=== PATIENT | female | born 1965 | race American Indian/Alaskan Native ===

== ENCOUNTER 2016-07-07 09:36 | Emergency (ER) | payer SELFPAY ==
[2016-07-07 09:44] VITALS: BP 148/102
--- NOTE | 2016-07-07 14:47 | Emergency Department Report ---
ED ENT HPI - General Chief complaint: Pain General Stated complaint: ABSCESS JAW SWOLLEN Time Seen by Provider: 07/07/16 13:45 Source: patient Mode of arrival: Ambulatory Limitations: No Limitations - History of Present Illness Initial comments: Patient presents with tooth pain for 2 weeks and left facial swelling. She was here approximately a month ago and Bactrim and hydrocodone. She admits that she did not follow-up with any of her referrals at last visit. She states that the facial swelling and the pain got better and then started back 2 weeks ago. MD complaint: tooth pain -: Gradual Location: tooth # (11, 12) Severity: severe Severity scale (0 -10): 10 Quality: aching, dull Consistency: constant Context- Dental: history of dental caries, poor dental care Associated Symptoms: toothache - Related Data Previous Rx's Medication Instructions Recorded Last Taken Type HYDROcodone/APAP 5-325 [[place] 1 each PO Q6HR PRN #16 tablet 06/04/16 Unknown Rx 5/325] Sulfamethoxazole/Trimethoprim 1 each PO BID #20 tablet 06/04/16 Unknown Rx [Bactrim DS TAB] Sulfamethoxazole/Trimethoprim 1 each PO BID #20 tablet 07/07/16 Unknown Rx [Bactrim DS TAB] traMADol [Ultram 50 MG tab] 50 mg PO BID PRN #14 tablet 07/07/16 Unknown Rx Allergies Allergy/AdvReac Type Severity Reaction Status Date / Time No Known Allergies Allergy Unverified 06/04/16 07:21 ED Dental HPI - General Chief complaint: Pain General Stated complaint: ABSCESS JAW SWOLLEN Time Seen by Provider: 07/07/16 13:45 Source: patient Mode of arrival: Ambulatory Limitations: No Limitations - Related Data Previous Rx's Medication Instructions Recorded Last Taken Type HYDROcodone/APAP 5-325 [[place] 1 each PO Q6HR PRN #16 tablet 06/04/16 Unknown Rx 5/325] Sulfamethoxazole/Trimethoprim 1 each PO BID #20 tablet 06/04/16 Unknown Rx [Bactrim DS TAB] Sulfamethoxazole/Trimethoprim 1 each PO BID #20 tablet 07/07/16 Unknown Rx [Bactrim DS TAB] traMADol [Ultram 50 MG tab] 50 mg PO BID PRN #14 tablet 07/07/16 Unknown Rx Allergies Allergy/AdvReac Type Severity Reaction Status Date / Time No Known Allergies Allergy Unverified 06/04/16 07:21 ED Review of Systems ROS: Stated complaint: ABSCESS JAW SWOLLEN Other details as noted in HPI Constitutional: denies: chills, fever ENT: as per HPI, dental pain Respiratory: denies: cough, shortness of breath, wheezing Cardiovascular: denies: chest pain, palpitations Gastrointestinal: denies: abdominal pain, nausea, diarrhea Musculoskeletal: denies: back pain, joint swelling, arthralgia Skin: denies: rash, lesions Neurological: denies: headache, weakness, paresthesias ED Past Medical Hx - Surgical History Additional Surgical History: x 4 - Social History Smoking Status: Current Every Day Smoker Substance Use Type: None - Medications Home Medications: Home Medications Medication Instructions Recorded Confirmed Last Taken Type HYDROcodone/APAP 5-325 [[place] 1 each PO Q6HR PRN #16 tablet 06/04/16 Unknown Rx 5/325] Sulfamethoxazole/Trimethoprim 1 each PO BID #20 tablet 06/04/16 Unknown Rx [Bactrim DS TAB] Sulfamethoxazole/Trimethoprim 1 each PO BID #20 tablet 07/07/16 Unknown Rx [Bactrim DS TAB] traMADol [Ultram 50 MG tab] 50 mg PO BID PRN #14 tablet 07/07/16 Unknown Rx ED Physical Exam - General Limitations: No Limitations General appearance: alert, in no apparent distress - Head Head exam: Present: atraumatic, normocephalic - Eye Eye exam: Present: normal appearance - ENT ENT exam: Present: mucous membranes moist, TM's normal bilaterally - Expanded ENT Exam Expanded Teeth exam: Present: dental caries, dental tenderness # (11, 12), other ( several missing teeth, facial swelling on left) - Neck Neck exam: Present: normal inspection, full ROM - Respiratory Respiratory exam: Present: normal lung sounds bilaterally. Absent: respiratory distress - Cardiovascular Cardiovascular Exam: Present: regular rate, normal rhythm. Absent: systolic murmur, diastolic murmur, rubs, gallop - Neurological Exam Neurological exam: Present: alert, oriented X3 - Psychiatric Psychiatric exam: Present: normal affect, normal mood - Skin Skin exam: Present: warm, dry, intact, normal color. Absent: rash ED Course Vital Signs 07/07/16 09:41 Temperature 98.9 F Pulse Rate 69 Respiratory 20 Rate Blood Pressure 148/102 O2 Sat by Pulse 100 Oximetry ED Medical Decision Making - Medical Decision Making Patient presents with tooth abscess and facial swelling. I will give her Bactrim twice a day 10 days, I will also give her tramadol for her pain. I will again refer her to Dr. Keny Lynch and [place] as Dr. Aaron did 1 month ago. - Differential Diagnosis tooth abscess, tooth decay, facial abscess Critical Care Time: No Critical care attestation.: If time is entered above; I have spent that time in minutes in the direct care of this critically ill patient, excluding procedure time. ED Disposition Clinical Impression: Abscessed tooth, Tooth decay Disposition: DISCHARGED TO HOME OR SELFCARE Is pt being admited?: No Does the pt Need Aspirin: No Condition: Stable Instructions: Dental Abscess (ED), Dental Caries (ED) Additional Instructions: It is very important that she follow up with an ENT, a dentist and facial plastic as advised. Prescriptions: Sulfamethoxazole/Trimethoprim [Bactrim DS TAB] 1 each PO BID #20 tablet traMADol [Ultram 50 MG tab] 50 mg PO BID PRN #14 tablet PRN Reason: Pain Referrals: KATHRIN LOPEZ MD [Staff Physician] - 3-5 Days DILAN NYE MD [Staff Physician] - 3-5 Days PRIMARY CARE, [Primary Care Provider] - 3-5 Days [facility] [Outside] - 3-5 Days [facility] [Outside] - 3-5 Days Time of Disposition: 14:58
== END 2016-07-07 15:04 | disposition home or self-care (01) ==
LOC: ED 09:36
DX: K04.7 Periapical abscess without sinus (principal); F17.200 Nicotine dependence, unspecified, uncomplicated
CPT/HCPCS: 99282

== ENCOUNTER 2016-08-21 10:31 | Emergency (ER) | payer SELFPAY ==
--- NOTE | 2016-08-21 14:56 | Emergency Department Report ---
ED Fall HPI - General Chief Complaint: Fall Stated Complaint: FALL/BACK PAIN /RT KNEE PAIN Time Seen by Provider: 08/21/16 13:46 Source: patient, family Mode of arrival: Ambulatory - History of Present Illness Initial Comments: Patient here reporting fall last night at work. She is complaining the lower back pain and right knee pain after she says she slipped and fell. Denies any head injury or loss of consciousness. Denies any loss of bowel or bladder control. She said the pain is worse when she tries to walk. Denies any nausea vomiting. Denies any numbness or tingling to extremities. She says she took [id number] pain medication but it didn't relieve her pain. Describes the pain is achy and 10 out of 10. Denies any urinary burning frequency or urgency. MD Complaint: fall -: Last night Fall From: standing When Fall Occurred: other (last night) Fall Witnessed: yes, by bystander Place Fall Occurred: home Loss of Consciousness: none Prolonged Down Time?: no Symptoms Prior to Fall: none Location: back Location - Extremities: Left: Knee (right knee pain and swelling) Severity: severe Severity scale (0 -10): 10 Quality: aching Context: tripped/slipped Associated Symptoms: denies: headache, neck pain, numbness, weakness, chest paint, shortness of breath, abdominal pain, hematuria, unable to walk, lightheaded, vertigo, confusion - Related Data Previous Rx's Medication Instructions Recorded Last Taken Type HYDROcodone/APAP 5-325 [[place] 1 each PO Q6HR PRN #16 tablet 06/04/16 Unknown Rx 5/325] Sulfamethoxazole/Trimethoprim 1 each PO BID #20 tablet 06/04/16 Unknown Rx [Bactrim DS TAB] Sulfamethoxazole/Trimethoprim 1 each PO BID #20 tablet 07/07/16 Unknown Rx [Bactrim DS TAB] traMADol [Ultram 50 MG tab] 50 mg PO BID PRN #20 tablet 08/21/16 Unknown Rx Allergies Allergy/AdvReac Type Severity Reaction Status Date / Time No Known Allergies Allergy Unverified 06/04/16 07:21 ED Review of Systems ROS: Stated complaint: FALL/BACK PAIN /RT KNEE PAIN Other details as noted in HPI Comment: All other systems reviewed and negative Constitutional: denies: chills, fever Respiratory: no symptoms reported Cardiovascular: denies: chest pain, palpitations, edema, syncope Gastrointestinal: denies: abdominal pain, nausea, vomiting, diarrhea Genitourinary: denies: urgency, dysuria, frequency, hematuria, discharge Skin: denies: rash Neurological: abnormal gait (due to right knee pain). denies: headache, numbness, paresthesias, confusion, vertigo ED Past Medical Hx - Past Medical History Previous Medical History?: No - Surgical History Past Surgical History?: Yes Additional Surgical History: x 4 - Family History Family history: hypertension - Social History Smoking Status: Current Every Day Smoker Substance Use Type: None - Medications Home Medications: Home Medications Medication Instructions Recorded Confirmed Last Taken Type HYDROcodone/APAP 5-325 [[place] 1 each PO Q6HR PRN #16 tablet 06/04/16 Unknown Rx 5/325] Sulfamethoxazole/Trimethoprim 1 each PO BID #20 tablet 06/04/16 Unknown Rx [Bactrim DS TAB] Sulfamethoxazole/Trimethoprim 1 each PO BID #20 tablet 07/07/16 Unknown Rx [Bactrim DS TAB] traMADol [Ultram 50 MG tab] 50 mg PO BID PRN #20 tablet 08/21/16 Unknown Rx ED Physical Exam - General Limitations: No Limitations General appearance: alert, in no apparent distress - Head Head exam: Present: atraumatic, normocephalic, normal inspection - Expanded Head Exam Expanded Head exam: Absent: laceration, abrasion, contusion, hematoma, racoon eyes, cooper's sign, general tenderness, tenderness of temporal artery, CSF rhinorrhea , CSF otorrhea - Eye Eye exam: Present: normal appearance, PERRL, EOMI. Absent: periorbital swelling , periorbital tenderness Pupils: Present: normal accommodation - ENT ENT exam: Present: normal exam, normal orophraynx, mucous membranes moist, TM's normal bilaterally, normal external ear exam - Neck Neck exam: Present: normal inspection, full ROM. Absent: tenderness, meningismus, lymphadenopathy - Expanded Neck Exam Expanded Neck exam: Absent: tenderness, midline deformity, anterior neck swelling, tracheal deviation - Respiratory Respiratory exam: Present: normal lung sounds bilaterally. Absent: respiratory distress, chest wall tenderness - Cardiovascular Cardiovascular Exam: Present: regular rate, normal rhythm, normal heart sounds - GI/Abdominal GI/Abdominal exam: Present: soft, normal bowel sounds. Absent: distended, tenderness, guarding, rebound, rigid - Expanded Lower Extremity Exam Right Hip exam: Present: normal inspection, full ROM, pelvic stability. Absent: tenderness, swelling, abrasion, laceration, ecchymosis, deformity, crepidus, dislocation, erythema, external rotation, internal rotation, shortening Upper Leg exam: Present: normal inspection, full ROM. Absent: tenderness, swelling, abrasion, laceration, ecchymosis, deformity, crepidus, dislocation, erythema Knee exam: Present: normal inspection, full ROM (full range of motion to right knee but she said it hurts when she flex and extend knee.), tenderness, swelling (mild swelling noted to right knee.), full knee extension. Absent: abrasion, laceration, ecchymosis, deformity, crepidus, dislocation, erythema, effusion, pain w/ pronation/supination, posterior draw sign, pain/laxity with valgus, pain/laxity with varus Lower Leg exam: Present: normal inspection, full ROM. Absent: tenderness, swelling, abrasion, laceration, ecchymosis, deformity, crepidus, dislocation, erythema, palpable cord, Idris's sign Ankle exam: Present: normal inspection, full ROM. Absent: tenderness, swelling , abrasion, laceration, ecchymosis, deformity, crepidus, dislocation, erythema, anterior draw sign Foot/Toe exam: Present: normal inspection, full ROM. Absent: tenderness, swelling, abrasion, laceration, ecchymosis, deformity, crepidus, dislocation, erythema, amputation, puncture wound, foreign body, calcaneal tenderness, tenderness at base of 5th metatarsal, nail avulsion, subungual hematoma Neuro vascular tendon exam: Present: no vascular compromise. Absent: pulse deficit, abnormal cap refill, motor deficit, sensory deficit, tendon deficit, extremity cold to touch, pallor, abnormal 2-point discrimination, decreased fine /light touch, foot drop, peroneal nerve deficit, significant pain with passive ROM of distal joint Gait: Positive: observed and limited by pain - Back Exam Back exam: Present: normal inspection, full ROM, tenderness, vertebral tenderness (lumbar spine). Absent: CVA tenderness (R), CVA tenderness (L), muscle spasm, paraspinal tenderness, rash noted - Expanded Back Exam Expanded Back exam: Absent: saddle anesthesia Back exam: Negative Straight Leg Raising: Left, Right - Neurological Exam Neurological exam: Present: alert, oriented X3, abnormal gait (to right knee pain), reflexes normal. Absent: motor sensory deficit - Expanded Neurological Exam Expanded Patient oriented to: Present: person, place, time Speech: Present: fluid speech Cranial nerves: EOM's Intact: Normal, Gag Reflex: Normal, Nystagmus: Normal, Facial Sensation: Normal Cerebellar function: Romberg: Normal Upper motor neuron: Pronator Drift: Normal, Sensory Extinction: Normal Sensory exam: Upper Extremity Light Touch: Normal, Upper Extremity Temperature: Normal, UE 2 Point Discrimination: Normal, Lower Extremity Light Touch: Normal, Lower Extremity Temperature: Normal, LE 2 Point Discrimination: Normal Motor strength exam: RUE: 5, LUE: 5, RLE: 5, LLE: 5 DTR: bicep (R): 2+, bicep (L): 2+, tricep (R): 2+, tricep (L): 2+, knee (R): 2+ , knee (L): 2+, ankle (R): 2+, ankle (L): 2+ Best Eye Response ([place]): (4) open spontaneously Best Motor Response ([place]): (6) obeys commands Best Verbal Response ([place]): (5) oriented [place] Total: 15 - Psychiatric Psychiatric exam: Present: normal affect, normal mood - Skin Skin exam: Present: warm, dry, intact, normal color. Absent: rash ED Course Vital Signs 08/21/16 08/21/16 11:32 15:08 Temperature 98.5 F Pulse Rate 70 Respiratory 20 18 Rate Blood Pressure 119/83 O2 Sat by Pulse 99 Oximetry - Reevaluation(s) Reevaluation #1: 08/21/16 16:19 given Dilaudid 1 mg IM and Phenergan 8 mg ODT. Pain is now down to 2 out of 10. PT up ambulating without any difficulties. 08/21/16 16:19 ED Medical Decision Making - Radiology Data Radiology results: report reviewed X-ray of the lumbar spine revealed no acute abnormalities. X-ray of right knee reveal degenerative joint disease - Medical Decision Making ED course: See Procedure note for splinting. She received Dilaudid 1 mg IM and Zofran 08 mg ODT relief of pain. Discussed the patient that x-ray of lumbar spine was within normal limits and x-ray of her right knee. She has some degeneration which shows osteoarthritis. I discussed patient if she continues to have back pain and knee pain that she'll need to follow-up with orthopedic doctor in 3-5 days. She voicedunderstanding of diagnosis and discharge plans. Patient discharged home with prescription for Ultram. Critical care attestation.: If time is entered above; I have spent that time in minutes in the direct care of this critically ill patient, excluding procedure time. ED Disposition Clinical Impression: Arthralgia of right knee Pain in lower back Qualifiers: Chronicity: unspecified Back pain laterality: bilateral Sciatica presence: without sciatica Qualified Code(s): M54.5 - Low back pain Degenerative joint disease of knee, right Qualifiers: Osteoarthritis type: unspecified Qualified Code(s): M17.9 - Osteoarthritis of knee, unspecified Disposition: DISCHARGED TO HOME OR SELFCARE Is pt being admited?: No Does the pt Need Aspirin: No Condition: Stable Instructions: Arthralgia (ED), Osteoarthritis (ED), Knee Pain (ED), Knee Exercises (GEN), Back Pain (ED), RICE Therapy (ED) Prescriptions: traMADol [Ultram 50 MG tab] 50 mg PO BID PRN #20 tablet PRN Reason: Pain Referrals: PRIMARY CARE, [Primary Care Provider] - 3-5 Days ENRIQUE ORDONEZ MD [Staff Physician] - 3-5 Days Forms: Work/School Release Form(ED)
[2016-08-21] MEDS ORDERED: ZOFRAN ODT PO ONE (14:58)
[2016-08-21] MEDS ORDERED: DILAUDID IM ONE (14:58)
--- NOTE | 2016-08-21 16:06 | XRay Report ---
Right knee 3 views: History: Fall with right knee pain. Findings: No fracture or dislocation. Narrowing of medial and patellofemoral compartment of knee joint with arthritic changes in the adjacent articular surfaces. Ossification along the lateral collateral ligament near the femoral condyle. Impression: Degenerative changes knee joint. Additional findings as described.
--- NOTE | 2016-08-21 16:08 | XRay Report ---
Lumbar spine 3 views: History: Fall with pain. Findings: Normal height of vertebral bodies and intervertebral disc. Normal articular surfaces. No fracture. No soft tissue calcification. Impression: No definite bony or articular abnormality lumbar spine.
[2016-08-21 16:36] VITALS: BP 124/86
== END 2016-08-21 16:35 | disposition home or self-care (01) ==
LOC: ED 10:31
DX: M25.561 Pain in right knee (principal); M54.5 Low back pain; M17.9 Osteoarthritis of knee, unspecified; F17.200 Nicotine dependence, unspecified, uncomplicated; W01.0XXA Fall on same level from slipping, tripping and stumbling without subsequent striking against object, initial encounter; Y93.89 Activity, other specified; Y92.89 Other specified places as the place of occurrence of the external cause; Y99.8 Other external cause status
CPT/HCPCS: 72100; 73562; 96372; 99283; J1170; Q0162

== ENCOUNTER 2022-01-13 08:03 | Outpatient (CLI) | payer MEDICAID ==
--- NOTE | 2022-01-13 10:20 | XRay Report ---
AP AND LATERAL STANDING VIEWS OF BOTH KNEES INDICATION / CLINICAL INFORMATION: M17.0 BILATERAL PRIMARY OSTEOARTHRITIS OF KNEE- COMPARISON: None available. FINDINGS: There is advanced joint space narrowing at the medial tibiofemoral compartments bilaterally. There is also advanced joint space narrowing at bilateral patellofemoral joint spaces. Lateral compartment jeimy int space height is relatively maintained. No acute skeletal abnormality or significant joint effusion bilaterally. IMPRESSION: 1. Osteoarthrosis changes as above. Signer Name: Guille Castaneda MD Signed: 01/13/2022 10:15 AM Workstation Name: [id number]
== END 2022-01-13 08:04 | disposition home or self-care (01) ==
LOC: XRAY 08:03
PROVIDERS: ATTEND Orthopaedic Surgery
DX: M17.0 Bilateral primary osteoarthritis of knee (principal)
CPT/HCPCS: 73565

== ENCOUNTER 2022-02-20 05:53 | Inpatient (IN) | payer MEDICAID ==
[2022-02-17 11:47] LABS: Hematocrit 36.2 % (30.3-42.9); Hemoglobin 11.4 gm/dl (10.1-14.3); Mean Corpuscular HGB Conc 32 % (30-34); Mean Corpuscular Volume 76 fl (79-97); Platelet Count 279 K/mm3 (140-440); Red Blood Count 4.79 M/mm3 (3.65-5.03)
[2022-02-17 12:08] LABS: BUN/Creatinine Ratio 20; Blood Urea Nitrogen 16 mg/dL (7-17); Calcium 9.7 mg/dL (8.4-10.2); Hemolysis Index 2
--- NOTE | 2022-02-17 12:12 | Anesthesia Consultation ---
Anesthesia Consult and Med Hx Date of service: 02/20/22 - Airway Anesthetic Teeth Evaluation: Poor ROM Head & Neck: Adequate Mental/Hyoid Distance: Adequate Mallampati Class: Class II Intubation Access Assessment: Probably Good - Pulmonary Exam CTA: Yes - Cardiac Exam Cardiac Exam: RRR - Pre-Operative Health Status ASA Pre-Surgery Classification: ASA3 Proposed Anesthetic Plan: General Nerve Block: Adducter canal - Pulmonary Hx Smoking: Yes Hx Asthma: Yes (Last used inhaler last week) - Cardiovascular System Hx Hypertension: Yes - Central Nervous System Hx Psychiatric Problems: Yes - Other Systems Hx Cancer: No Hx Obesity: Yes
[2022-02-20] MEDS ORDERED: ceFAZolin/Water 2 GM/20 ML 2 GM/20 ML SYRINGE IV NR (06:00)
[2022-02-20] MEDS: LACTATED RINGERS 1,000 ML IV SCH ×2 (06:25→14:38)
[2022-02-20] MEDS ORDERED: GABAPENTIN 300 MG CAP PO NR (07:00)
[2022-02-20] MEDS ORDERED: MIDAZOLAM 2 MG/2 ML INJ IV NR (07:00)
[2022-02-20] MEDS ORDERED: FAMOTIDINE 20 MG TAB PO NR (07:00)
[2022-02-20] MEDS ORDERED: CELECOXIB 200 MG CAP PO NR (07:00)
[2022-02-20] MEDS ORDERED: BUPIVACAINE/PF (0.5%) 5 MG/1 ML 10 ML VIAL INFILTRATI NR (07:00)
[2022-02-20] MEDS ORDERED: LIDOCAINE (1%) 10 MG/1 ML VIAL 20 ML MDV INFILTRATI NR (07:00)
[2022-02-20] MEDS ORDERED: fentaNYL 100 MCG/2 ML INJ ONE ×2 (07:11→07:48)
[2022-02-20] MEDS ORDERED: BUPIVACAINE/PF (0.25%) 2.5 MG/ML 30 ML VIAL INFILTRATI ONE (07:11)
[2022-02-20] MEDS ORDERED: dexAMETHasone 4 MG/ML VIAL ONE (07:14)
[2022-02-20] MEDS ORDERED: KETOROLAC 30 MG/1 ML INJ ONE (07:35)
[2022-02-20] MEDS ORDERED: SODIUM CHLORIDE 0.9% 100 ML ONE (07:36)
[2022-02-20] MEDS ORDERED: MORPHINE 10 MG/1 ML INJ ONE (07:36)
[2022-02-20] MEDS ORDERED: TRANEXAMIC ACID 1,000 MG/10 ML ONE ×2 (07:36→10:07)
--- NOTE | 2022-02-20 07:42 | Anesthesia Day of Surgery ---
Anesthesia Day of Surgery - Day of Surgery Patient Examined: Yes Patient H&P Reviewed: Yes Patient is NPO: Yes
[2022-02-20] MEDS ORDERED: ROCURONIUM 50 MG/5 ML INJ IV ONE (07:43)
[2022-02-20] MEDS ORDERED: propofoL 200 MG/20 ML VIAL IV ONE (07:43)
[2022-02-20] MEDS ORDERED: LIDOCAINE MPF (2%) 20 MG/1 ML VIAL 5 ML ONE (07:43)
[2022-02-20] MEDS ORDERED: SUCCINYLCHOLINE CHLORIDE 200 MG/10 ML INJ MDV ONE (07:43)
[2022-02-20] MEDS ORDERED: ceFAZolin/STERILE WATER 2 GM/20 ML SYRINGE IV NR (08:00)
[2022-02-20] MEDS ORDERED: SCOPOLAMINE TRANSDERMAL PATCH 72 HR TD NR (08:00)
[2022-02-20] MEDS ORDERED: SUGAMMADEX SODIUM 200 MG/2 ML VIAL IV ONE (08:48)
[2022-02-20] MEDS ORDERED: ePHEDrine SULFATE 50 MG/1 ML INJ ONE (08:55)
[2022-02-20] MEDS ORDERED: KETAMINE/STERILE WATER 50 MG/ML SYRINGE ONE (09:02)
[2022-02-20] MEDS ORDERED: SODIUM CHLORIDE 0.9% 50 ML ONE (09:21)
[2022-02-20] MEDS ORDERED: MORPHINE 10 MG/1 ML INJ IM ONE (09:32)
[2022-02-20] MEDS ORDERED: SODIUM CHLORIDE 0.9% 50 ML VIAL INFILTRATI ONE (09:33)
[2022-02-20] MEDS ORDERED: TRANEXAMIC ACID 1,000 MG/10 ML IV ONE (09:33)
[2022-02-20] MEDS ORDERED: KETOROLAC 30 MG/1 ML INJ IV ONE (09:33)
[2022-02-20] MEDS ORDERED: SODIUM CHLORIDE 0.9% 100 ML IVPB IV ONE (09:33)
[2022-02-20] MEDS ORDERED: BUPIVACAINE/PF (0.5%) 5 MG/1 ML 10 ML VIAL INFILTRATI ONE (09:34)
[2022-02-20] MEDS ORDERED: PHENYLEPHRINE/NS 1,000 MCG/10 ML SYRINGE (OR USE) IV ONE (10:22)
[2022-02-20] MEDS ORDERED: ONDANSETRON 4 MG/2 ML INJ ONE (10:22)
[2022-02-20] MEDS ORDERED: LACTATED RINGERS 1,000 ML ONE (10:22)
--- NOTE | 2022-02-20 10:45 | Procedure Note ---
Date of procedure: 02/20/22 Pre-op diagnosis: Severe arthritis right knee Post-op diagnosis: same Procedure: [Right] total knee replacement Procedure The patient was brought to the OR after being given a obturator nerve block and preoperative holding she was placed on the OR table supine position following induction elevation of anesthesia the patient is [right] lower extremity was prepped and draped in the usual sterile manner. A timeout procedure was done to identify the patient in the correct operative site. The leg was exsanguinated followed by inflation of the pneumatic tourniquet to 300 mmHg. A midline incision was made over the patella was taken down distally towards the tibial tubercle next the medial retinaculum was incised and the patella was inverted examination of the patient's knee joint revealed typical osteoarthritic changes with large bone spurs noted primarily in the medial compartment both the femoral and tibial's articular surfaces exhibited bare bone and large peripheral osteophytes next a large drill bit was used to enter the medullary canal this was followed by placement of the distal femoral cutting Jig the distal femur was resected approximately 8-9 mm of bone was removed at this time. Attention was turned to the patient's proximal tibia using a external alignme guide the bone was cut using the medial surface as the low point of care was taken to protect the medial collateral ligaments the tibial articular surface was 7-sized A3 a #3 tibial based ray was selected this was followed by placement of the fixation hole or keel into the proximal tibial artery medullary canal. Attention was turned to the distal femur and using a 4 and 1 cutting block a +3 component was selected AP anterior and posterior as well as Mejias cuts were made a +3 tibial ostomy femoral component was placed and the knee was then taken to a range of motion she appeared to have stability in both the flexion and extension FOLLOWING this the trial components were removed the knee was then copiously irrigated any remaining soft tissue and bony debris were removed at this time next the cement was next and following this the tibial components were inserted beginning with the based ray followed by the polyethylene insert The femoral component was added the excess were removed the knee was held in extension until the cement hardened following hardening of cement the knee was then brought back into of flexion any remaining soft tissue and bony debris were removed at this time. The wound again was irrigated and was closed in a standard routine fashion. Dressings were applied the patient tolerated the procedure there were no complications she was then taken to post anesthesia recovery Anesthesia: MAC, regional Surgeon: EMILY AQUINO (Andrew Hernández, 1st assist) Estimated blood loss: other (250 cc) Pathology: none Condition: stable Disposition: PACU
[2022-02-20] MEDS ORDERED: dexAMETHasone 20 MG/5 ML VIAL ONE (12:31)
[2022-02-20] MEDS ORDERED: ACETAMINOPHEN 650 MG RECT SUPP PR PRN (13:00)
[2022-02-20] MEDS ORDERED: ONDANSETRON 4 MG/2 ML INJ IV NR (13:00)
[2022-02-20] MEDS ORDERED: HYDROmorphone 0.5 MG/0.5 ML INJ IV PRN (13:00)
[2022-02-20] MEDS ORDERED: MORPHINE 4 MG/1 ML INJ IV PRN (13:00)
[2022-02-20] MEDS ORDERED: ONDANSETRON 4 MG/2 ML INJ IV PRN (13:00)
--- NOTE | 2022-02-20 13:53 | XRay Report ---
RIGHT KNEE 1 VIEW INDICATION: Postop evaluation. COMPARISON: 01/13/2022 IMPRESSION: Right knee prosthesis appears in good position and alignment on one view. No obvious acu te abnormality. The soft tissues are unremarkable. Signer Name: Reynaldo Perera Jr, MD Signed: 02/20/2022 1:49 PM Workstation Name: [id number]
[2022-02-20] MEDS: ceFAZolin/NS 1 GM/50 ML 1 GM/50 ML BAG IV SCH ×2 (14:38→22:03)
[2022-02-20] MEDS: MORPHINE 2 MG/1 ML INJ IV PRN ×2 (14:59→18:39)
--- NOTE | 2022-02-20 16:34 | Post Anesthesia Evaluation ---
- Post Anesthesia Evaluation Patient Participated: Yes Airway Patent: Yes Stable Respiratory Function: Yes Nausea/Vomiting: No Temp > 96.8F: Yes Pain Manageable: Yes Adequeate Hydration: Yes Anesthesia Complications: No Block Receding Appropriately: Not Applicable Patient on Ventilator: No
[2022-02-20] MEDS: KETOROLAC 30 MG/1 ML INJ IV PRN (18:38)
[2022-02-21] MEDS: MORPHINE 2 MG/1 ML INJ IV PRN ×3 (01:34→13:54)
[2022-02-21 06:01] LABS: Hematocrit 30.3 % (30.3-42.9); Hemoglobin 9.3 gm/dl (10.1-14.3)
[2022-02-21] MEDS: HYDROmorphone 0.5 MG/0.5 ML INJ IV PRN (06:17)
[2022-02-21] MEDS: ENOXAPARIN 40 MG/0.4 ML INJ SUB-Q SCH (10:25)
[2022-02-21] MEDS: KETOROLAC 30 MG/1 ML INJ IV PRN ×2 (13:53→21:58)
--- NOTE | 2022-02-21 14:30 | Progress Note ---
Assessment and Plan s/p right TKR, doing ok continue PT once medical condition allows... Subjective Date of service: 02/21/22 Interval history: states O2 sat dec while attempting PT session earlier, ok now..moving knee on own in bed... Objective Vital signs: Vital Signs - 12hr 02/21/22 02/21/22 02/21/22 04:55 05:02 05:09 Temperature 99.2 F 97.6 F Pulse Rate 81 59 L Respiratory 20 18 Rate Blood Pressure Blood Pressure 112/64 119/75 [Left] O2 Sat by Pulse 94 6 L 99 Oximetry 02/21/22 02/21/22 02/21/22 07:40 08:39 11:13 Temperature 98.5 F 98.5 F Pulse Rate 81 86 Respiratory 20 18 Rate Blood Pressure 116/69 119/63 Blood Pressure [Left] O2 Sat by Pulse 92 95 94 Oximetry Incision: clean and dry Weight bearing status: as tolerated - Labs CBC & BMP: 02/21/22 05:31 02/17/22 11:30 Labs: Abnormal lab results 02/21/22 Range/Units 05:31 Hgb 9.3 L (10.1-14.3) gm/dl
[2022-02-21] MEDS: IBUPROFEN 800 MG TAB PO PRN (18:11)
[2022-02-21] MEDS ORDERED: oxyCODONE /ACETAMINOPHEN 5-325MG TAB PO ONE (21:56)
[2022-02-22] MEDS: IBUPROFEN 800 MG TAB PO PRN (03:15)
[2022-02-22] MEDS: KETOROLAC 30 MG/1 ML INJ IV PRN (08:40)
[2022-02-22] MEDS: MORPHINE 2 MG/1 ML INJ IV PRN ×3 (09:44→21:45)
[2022-02-22] MEDS: ENOXAPARIN 40 MG/0.4 ML INJ SUB-Q SCH (09:44)
[2022-02-23] MEDS ORDERED: ZOLPIDEM 5 MG TAB PO ONE (00:24)
[2022-02-23] MEDS: HYDROmorphone 0.5 MG/0.5 ML INJ IV PRN (05:56)
[2022-02-23] MEDS: ENOXAPARIN 40 MG/0.4 ML INJ SUB-Q SCH (11:09)
--- NOTE | 2022-02-23 12:37 | Discharge Summary ---
Providers - Providers Date of Admission: 02/20/22 05:53 Date of discharge: 02/23/22 Attending physician: EMILY AQUINO MD 02/20/22 10:37 Consult to Case Management [CONS] Routine Services Needed at Discharge: Other Notified:: yes Additional Physician Instructions: Assess Discharge needs. Physical Therapy Evaluation and Treat [CONS] Routine Comment: Reason For Exam: Eval and Treat Primary care physician: VERNA WALTER Hospitalization Disposition: 30 STILL A PATIENT Exam - Constitutional Vitals: Temp Pulse Resp BP Pulse Ox 98.6 F 82 18 131/69 98 02/23/22 08:08 02/23/22 08:08 02/23/22 08:08 02/23/22 08:08 02/23/22 09:35 Plan Follow up with: VERNA WALTER MD [Primary Care Provider] - 7 Days Prescriptions: Apixaban [Eliquis] 5 mg PO DAILY #30 Oxycodone HCl/Acetaminophen [Percocet 10/325 mg] 1 each PO Q6HR PRN #30 PRN Reason: Pain
[2022-02-23 13:05] VITALS: BP 132/79
== END 2022-02-23 17:33 | disposition home or self-care (01) | DRG 470 ==
LOC: 3A 05:53 → 4A 11:25
PROVIDERS: ADMIT Orthopaedic Surgery; ATTEND Orthopaedic Surgery
PROC: 0SRC0J9 Replacement of Right Knee Joint with Synthetic Substitute, Cemented, Open Approach (ICD-10-PCS; principal; 2022-02-20)
DX: M17.11 Unilateral primary osteoarthritis, right knee (principal); J45.909 Unspecified asthma, uncomplicated; I10 Essential (primary) hypertension; E66.9 Obesity, unspecified; Z68.44 Body mass index [BMI] 60.0-69.9, adult; Z87.891 Personal history of nicotine dependence
CPT/HCPCS: 36415; 64450; 80048; 85014; 85018; 85027; 88304; 88311; 94760; G0378; J3490; C1713; C1776; J0330; J0690; J1100; J1170; J1650; J1885; J2250; J2270; J2370; J2405; J2704; J3010; J7120; U0003